=== PATIENT | female | born 2000 | race Caucasian/White ===

== ENCOUNTER 2023-03-04 19:57 | Emergency (ER) | payer MEDICAID ==
[~2023-03-04] VITALS: Ht 157.5 cm; Wt 65.0 kg
[2023-03-04 20:18] VITALS: O2SAT 99
[2023-03-04] MEDS ORDERED: TETANUS, DIPHTHERIA, PERTUSSIS VAC/PF 0.5ML (>10YR OLD) IM ONE (21:00)
[2023-03-04] MEDS ORDERED: BACITRACIN ZINC OINT UDPKT TOP ONE (21:00)
[2023-03-04] MEDS ORDERED: LIDOCAINE HCL/PF 1% 10 MG/ML 5ML VIAL INFIL ONE (21:00)
[2023-03-04] MEDS ORDERED: SULF1TAB48 MT (22:13)
[2023-03-04] MEDS ORDERED: CEPH500T MT (22:13)
[2023-03-04 22:40] VITALS: BP 121/69; PULSE 84; RESP 16; TEMP 98.4
== END 2023-03-04 22:40 | disposition home or self-care (01) ==
LOC: ER 19:57
DX: L02.415 Cutaneous abscess of right lower limb (principal); L03.115 Cellulitis of right lower limb
CPT/HCPCS: 99283; 10060; 90715; 90471; J3490

== ENCOUNTER 2023-04-24 02:54 | Emergency (ER) | payer MEDICAID ==
[~2023-04-24] VITALS: Ht 157.5 cm; Wt 68.0 kg
[~2023-04-24 02:54] MED LIST: CEPH500T MT; SULF1TAB48 MT
[2023-04-24 03:36] VITALS: BP 120/74; PULSE 89; RESP 18; TEMP 98.8; O2SAT 99
[2023-04-24 05:00] LABS: CLARITY URINE CLOUDY (CLEAR); COLOR URINE YELLOW (YELLOW); GLUCOSE URINE NEGATIVE (NEGATIVE); KETONES URINE NEGATIVE (NEGATIVE); LEUKOCYTE ESTERASE URINE NEGATIVE (NEGATIVE); NITRITE URINE NEGATIVE (NEGATIVE); OCCULT BLOOD URINE NEGATIVE (NEGATIVE); PH URINE 5.5 (4.5-8.0); PROTEIN URINE NEGATIVE (NEGATIVE); SPECIFIC GRAVITY URINE 1.033 (1.005-1.030); UROBILINOGEN URINE 0.2 E.U./dL (0.2-1.0)
[2023-04-24 05:18] LABS: BACTERIA URINE NONE SEEN; RBC URINE NONE SEEN /hpf (0-2); SQUAMOUS EPITHELIAL CELL URINE NONE SEEN /lpf (RARE/1+); WBC URINE NONE SEEN /hpf (0-2)
== END 2023-04-24 05:28 | disposition left against medical advice (07) ==
LOC: ER 02:54
DX: N89.8 Other specified noninflammatory disorders of vagina (principal); Z53.21 Procedure and treatment not carried out due to patient leaving prior to being seen by health care provider
CPT/HCPCS: 81003; 99281